=== PATIENT | male | born 1960 | race African-American/Black ===

== ENCOUNTER 2016-10-09 12:07 | Emergency (ER) | payer SELFPAY ==
[~2016-10-09] VITALS: Ht 172.7 cm; Wt 61.0 kg
[~2016-10-09 12:07] MED LIST: ACET-2178 PO; AMLO5TAB88 PO; CIME400T PO; FERR-43 PO; PHEN100C4 PO
[2016-10-09] MEDS ORDERED: DIAZEPAM 2 MG TABLET PO ONE (13:00)
[2016-10-09] MEDS ORDERED: KETOROLAC 60MG/2ML VIAL IM ONE (13:00)
[2016-10-09 13:59] LABS: CLARITY URINE CLEAR (CLEAR); COLOR URINE DARK YELLOW (YELLOW); GLUCOSE URINE NEGATIVE (NEGATIVE); KETONES URINE 1+ (NEGATIVE); LEUKOCYTE ESTERASE URINE NEGATIVE (NEGATIVE); NITRITE URINE NEGATIVE (NEGATIVE); OCCULT BLOOD URINE NEGATIVE (NEGATIVE); PH URINE 6.5 (4.5-8.0); PROTEIN URINE TRACE (NEGATIVE); SPECIFIC GRAVITY URINE 1.021 (1.005-1.030)
[2016-10-09 14:41] VITALS: BP 117/66
== END 2016-10-09 16:36 | disposition home or self-care (01) ==
LOC: ER 14:59
DX: S39.012A Strain of muscle, fascia and tendon of lower back, initial encounter (principal); G89.29 Other chronic pain; I10 Essential (primary) hypertension; D64.9 Anemia, unspecified; R56.9 Unspecified convulsions; F17.200 Nicotine dependence, unspecified, uncomplicated; Z79.899 Other long term (current) drug therapy; X58.XXXA Exposure to other specified factors, initial encounter; Y93.89 Activity, other specified; Y99.8 Other external cause status; Y92.89 Other specified places as the place of occurrence of the external cause
CPT/HCPCS: 72100; 81001; 96372; 99285; J1885; Z7610

== ENCOUNTER 2020-12-13 09:14 | Emergency (ER) | payer MEDICAID, MEDICARE, OTHER ==
[~2020-12-13] VITALS: Ht 172.7 cm; Wt 59.0 kg
[~2020-12-13 09:14] MED LIST changes: -ACET-2178 PO; +TOPUD PO
[2020-12-13 10:15] LABS: HEMATOCRIT. 22.2 % (42.0-52.0); MEAN CORPUSCULAR HEMOGLOBIN 24.6 pg (28.0-32.0); MEAN CORPUSCULAR VOLUME 78.3 fL (80.0-94.0); MEAN PLATELET VOLUME 6.2 fl (7.4-10.4); PLATELET 377 x1000/uL (130-400); RED BLOOD CELL COUNT 2.83 mill/uL (4.7-6.1); RED CELL DISTRIBUTION WIDTH 20.9 % (11.6-14.6)
[2020-12-13 10:21] LABS: CHLORIDE 107 mEq/L (98-107)
[2020-12-13 10:27] LABS: PROTHROMBIN TIME 10.5 sec (9.6-11.0)
[2020-12-13 10:31] LABS: TOTAL IRON BINDING CAPACITY 384 ug/dL (250-450)
[2020-12-13 10:44] LABS: FOLIC ACID (FOLATE) SERUM 12.6 ng/mL (>5.38)
[2020-12-13 11:10] VITALS: BP 148/80
[2020-12-13 11:23] LABS: PLATELET ESTIMATE NORMAL
== END 2020-12-13 11:15 | disposition home or self-care (01) ==
LOC: ER 09:14
DX: D64.9 Anemia, unspecified (principal); I10 Essential (primary) hypertension; G40.909 Epilepsy, unspecified, not intractable, without status epilepticus; Z98.890 Other specified postprocedural states
CPT/HCPCS: 36415; 80053; 82607; 82746; 83540; 83550; 85025; 85044; 86850; 86900; 99283

== ENCOUNTER 2020-12-14 11:47 | Emergency (ER) | payer OTHER ==
[~2020-12-14] VITALS: Ht 172.7 cm; Wt 59.0 kg
[2020-12-14 13:00] LABS: HEMATOCRIT. 22.7 % (42.0-52.0); HEMOGLOBIN. 7.2 g/dL (14.0-18.0); MEAN CORPUSCULAR HEMOGLOBIN 25.3 pg (28.0-32.0); MEAN CORPUSCULAR VOLUME 79.6 fL (80.0-94.0); MEAN PLATELET VOLUME 6.4 fl (7.4-10.4); PLATELET 373 x1000/uL (130-400); RED BLOOD CELL COUNT 2.85 mill/uL (4.7-6.1); RED CELL DISTRIBUTION WIDTH 20.6 % (11.6-14.6)
[2020-12-14 13:01] LABS: CHLORIDE 106 mEq/L (98-107)
[2020-12-14 13:08] LABS: PARTIAL THROMBOPLASTIN TIME 27.9 sec (23.4-31.0); PROTHROMBIN TIME 10.6 sec (9.6-11.0)
[2020-12-14 14:23] LABS: PLATELET ESTIMATE NORMAL
[2020-12-14 14:55] VITALS: BP 148/74
== END 2020-12-14 14:56 | disposition home or self-care (01) ==
LOC: ER 11:47
DX: D64.9 Anemia, unspecified (principal); I51.7 Cardiomegaly; I10 Essential (primary) hypertension; R56.9 Unspecified convulsions
CPT/HCPCS: 36415; 80048; 84484; 85025; 86850; 86900; 93005; 99284

== ENCOUNTER 2021-03-05 08:09 | Inpatient (IN) | payer OTHER ==
[~2021-03-05] VITALS: Ht 172.7 cm; Wt 58.1 kg
[2021-03-05] MEDS ORDERED: SODIUM CHLORIDE 0.9% 1,000 ML IV ONE (08:30)
[2021-03-05 08:49] LABS: CHLORIDE 102 mEq/L (98-107)
[2021-03-05 08:54] LABS: PARTIAL THROMBOPLASTIN TIME 24.3 sec (23.4-31.0); PROTHROMBIN TIME 11.2 sec (9.6-11.0)
[2021-03-05 08:59] LABS: HEMATOCRIT. 24.7 % (42.0-52.0); HEMOGLOBIN. 7.3 g/dL (14.0-18.0); MEAN CORPUSCULAR HEMOGLOBIN 21.7 pg (28.0-32.0); MEAN CORPUSCULAR VOLUME 73.5 fL (80.0-94.0); MEAN PLATELET VOLUME 6.8 fl (7.4-10.4); PLATELET 270 x1000/uL (130-400); RED BLOOD CELL COUNT 3.36 mill/uL (4.7-6.1); RED CELL DISTRIBUTION WIDTH 21.3 % (11.6-14.6)
[2021-03-05 09:42] LABS: NUCLEATED RED BLOOD CELLS 1 /100 WBC; PLATELET ESTIMATE NORMAL
[2021-03-05] MEDS ORDERED: ONDANSETRON HCL 4MG/2ML INJ IV PRN (17:15)
[2021-03-05] MEDS ORDERED: HYDRALAZINE 20MG/ML VIAL IV PRN (17:15)
[2021-03-05] MEDS ORDERED: HYDROCODONE/ACETAMINOPHEN 5/325MG TABLET PO PRN (17:15)
[2021-03-05] MEDS: DEXT 5%/0.9% NACL 1,000 ML IV SCH (17:23)
[2021-03-05] MEDS ORDERED: NALOXONE HCL 0.4MG/ML VIAL IV PRN (17:30)
[2021-03-05] MEDS: PHENYTOIN SODIUM EXTENDED 100MG CAPSULE PO SCH (17:46)
[2021-03-05] MEDS: PANTOPRAZOLE SODIUM 40 MG/VIAL IV SCH (17:46)
[2021-03-05 18:11] LABS: HEMATOCRIT 22.3 % (42.0-52.0); HEMOGLOBIN 6.6 g/dL (14.0-18.0)
[2021-03-06 04:08] LABS: BASOPHILS % 0.5 % (0.0-2.0); EOSINOPHILS % 2.3 % (0.0-5.0); HEMATOCRIT. 25.7 % (42.0-52.0); MEAN CORPUSCULAR HEMOGLOBIN 23.7 pg (28.0-32.0); MEAN CORPUSCULAR VOLUME 76.2 fL (80.0-94.0); MEAN PLATELET VOLUME 7.2 fl (7.4-10.4); NEUTROPHILS % 66.2 % (40.0-76.0); PLATELET 222 x1000/uL (130-400); RED BLOOD CELL COUNT 3.37 mill/uL (4.7-6.1); RED CELL DISTRIBUTION WIDTH 23.7 % (11.6-14.6)
[2021-03-06 04:16] LABS: CHLORIDE 103 mEq/L (98-107)
[2021-03-06 04:57] LABS: PLATELET ESTIMATE NORMAL
[2021-03-06] MEDS: PHENYTOIN SODIUM EXTENDED 100MG CAPSULE PO SCH ×2 (08:11→16:56)
[2021-03-06] MEDS: PANTOPRAZOLE SODIUM 40 MG/VIAL IV SCH (08:42)
[2021-03-06] MEDS: DEXT 5%/0.9% NACL 1,000 ML IV SCH (08:42)
[2021-03-06 09:32] VITALS: BP 141/80
[2021-03-06 10:00] VITALS: BP 141/80
[2021-03-06 12:00] VITALS: BP_SYST 136; BP_SYST 137; BP_SYST 160; BP_DIAS 64; BP_DIAS 74
[2021-03-06 13:34] LABS: HEMATOCRIT 33.1 % (42.0-52.0); HEMOGLOBIN 10.3 g/dL (14.0-18.0)
[2021-03-06 16:00] VITALS: BP 145/80
[2021-03-06 20:00] VITALS: BP 128/71
[2021-03-06 21:22] LABS: TOTAL IRON BINDING CAPACITY 376 ug/dL (250-450)
[2021-03-06 21:40] LABS: FOLIC ACID (FOLATE) SERUM 8.3 ng/mL (>5.38)
[2021-03-07] VITALS: BP_SYST 112; BP_SYST 119; BP_SYST 138; BP_DIAS 70; BP_DIAS 71; BP_DIAS 75
[2021-03-07 04:00] VITALS: BP 133/74
[2021-03-07 06:29] LABS: HEMATOCRIT. 31.6 % (42.0-52.0); MEAN CORPUSCULAR HEMOGLOBIN 24.6 pg (28.0-32.0); MEAN CORPUSCULAR VOLUME 77.8 fL (80.0-94.0); MEAN PLATELET VOLUME 7.4 fl (7.4-10.4); PLATELET 234 x1000/uL (130-400); RED BLOOD CELL COUNT 4.06 mill/uL (4.7-6.1); RED CELL DISTRIBUTION WIDTH 22.9 % (11.6-14.6)
[2021-03-07 06:32] LABS: CHLORIDE 102 mEq/L (98-107)
[2021-03-07] MEDS: DEXT 5%/0.9% NACL 1,000 ML IV SCH ×3 (07:03→20:24)
[2021-03-07 08:00] VITALS: BP 136/83
[2021-03-07] MEDS ORDERED: PANTOPRAZOLE SODIUM 40 MG/VIAL IV SCH (09:00)
[2021-03-07] MEDS: PHENYTOIN SODIUM EXTENDED 100MG CAPSULE PO SCH ×2 (09:12→16:25)
[2021-03-07] MEDS ORDERED: ASCORBIC ACID 500 MG TABLET PO SCH (10:00)
[2021-03-07] MEDS ORDERED: PROT40 MT (11:51)
[2021-03-07] MEDS ORDERED: FERR-71 MT (11:51)
[2021-03-07 12:00] VITALS: BP 152/77
[2021-03-07] MEDS ORDERED: FERROUS SULFATE 325MG TABLET PO SCH (12:40)
[2021-03-07] MEDS: IRON SUCROSE COMPLEX 100 MG/5 ML ML IV SCH (15:41)
[2021-03-07 16:00] VITALS: BP_SYST 138; BP_SYST 142; BP_SYST 146; BP_DIAS 78; BP_DIAS 82
[2021-03-07 20:00] VITALS: BP 143/81
[2021-03-07] MEDS: PANTOPRAZOLE SODIUM 40 MG/VIAL IV SCH (20:24)
[2021-03-07 20:26] LABS: PLATELET ESTIMATE NORMAL
[2021-03-08] VITALS: BP 115/54
[2021-03-08 04:00] VITALS: BP 135/67
[2021-03-08 07:07] LABS: BASOPHILS % 0.6 % (0.0-2.0); EOSINOPHILS % 1.7 % (0.0-5.0); HEMATOCRIT. 29.4 % (42.0-52.0); HEMOGLOBIN. 9.5 g/dL (14.0-18.0); LYMPHOCYTES % 13.4 % (20.0-50.0); MEAN CORPUSCULAR HEMOGLOBIN 24.9 pg (28.0-32.0); MEAN CORPUSCULAR VOLUME 77.4 fL (80.0-94.0); MONOCYTES % 13.2 % (2.0-8.0); NEUTROPHILS % 71.1 % (40.0-76.0); PLATELET 231 x1000/uL (130-400); RED CELL DISTRIBUTION WIDTH 22.9 % (11.6-14.6)
[2021-03-08 07:55] LABS: CHLORIDE 106 mEq/L (98-107)
[2021-03-08 08:00] VITALS: BP 151/82
[2021-03-08] MEDS: PANTOPRAZOLE SODIUM 40 MG/VIAL IV SCH (08:45)
[2021-03-08] MEDS: PHENYTOIN SODIUM EXTENDED 100MG CAPSULE PO SCH ×2 (09:00→17:00)
[2021-03-08] MEDS: DEXT 5%/0.9% NACL 1,000 ML IV SCH (11:05)
[2021-03-08] MEDS ORDERED: MIDAZOLAM HCL 5 MG/5 ML VIAL ONE (11:19)
[2021-03-08] MEDS ORDERED: LIDOCAINE HCL 1% 10 MG/ML 10ML VIAL ONE (11:20)
[2021-03-08] MEDS ORDERED: PROPOFOL 200MG/20ML VIAL IV ONE (11:21)
[2021-03-08 12:00] VITALS: BP 147/66
[2021-03-08] MEDS: IRON SUCROSE COMPLEX 100 MG/5 ML ML IV SCH (14:55)
[2021-03-08 15:27] VITALS: BP 141/90
[2021-03-08] MEDS ORDERED: BARIUM SULFATE(VOLUMEN) 450 ML ORAL.SUSP ONE ×2 (15:32→15:36)
[2021-03-08] MEDS ORDERED: IOHEXOL-350 100 ML BOTTLE ONE (18:36)
== END 2021-03-08 18:30 | disposition home or self-care (01) | DRG 378 ==
LOC: ER 08:09 → 8WST 15:13 → EDBEDREQ 03-06 06:00 → ENRESERV 03-06 08:06
PROVIDERS: ADMIT Internal Medicine; ATTEND Internal Medicine
PROC: 30233N1 Transfusion of Nonautologous Red Blood Cells into Peripheral Vein, Percutaneous Approach (ICD-10-PCS; principal; 2021-03-05)
PROC: 0DB68ZX Excision of Stomach, Via Natural or Artificial Opening Endoscopic, Diagnostic (ICD-10-PCS; 2021-03-08)
DX: K29.71 Gastritis, unspecified, with bleeding (principal); E87.1 Hypo-osmolality and hyponatremia; K31.811 Angiodysplasia of stomach and duodenum with bleeding; D50.9 Iron deficiency anemia, unspecified; R73.9 Hyperglycemia, unspecified; I10 Essential (primary) hypertension; G40.909 Epilepsy, unspecified, not intractable, without status epilepticus; K44.9 Diaphragmatic hernia without obstruction or gangrene; Z20.822 Contact with and (suspected) exposure to COVID-19; Z87.891 Personal history of nicotine dependence; Z79.899 Other long term (current) drug therapy
CPT/HCPCS: 36415; 71045; 74176; 74177; 80048; 80053; 82270; 82607; 82728; 82746; 83540; 83550; 83880; 84484; 85014; 85018; 85025; 86850; 86900; 86920; 87426; 88305; 93005; 99285; C9113; J0360; J2250; J2704; J3490; J7030; J7042; P9016; Q9967

== ENCOUNTER 2021-09-29 09:42 | Inpatient (IN) | payer OTHER ==
[~2021-09-29] VITALS: Ht 172.7 cm; Wt 60.8 kg
[~2021-09-29 09:42] MED LIST changes: +FERR-71 MT; +PROT40 MT
[2021-09-29 10:55] LABS: BASOPHILS % 1.1 % (0.0-2.0); EOSINOPHILS % 2.7 % (0.0-5.0); LYMPHOCYTES % 18.8 % (20.0-50.0); MEAN CORPUSCULAR HEMOGLOBIN 22.5 pg (28.0-32.0); MEAN CORPUSCULAR VOLUME 74.2 fL (80.0-94.0); MEAN PLATELET VOLUME 6.4 fl (7.4-10.4); MONOCYTES % 13.5 % (2.0-8.0); NEUTROPHILS % 63.9 % (40.0-76.0); PLATELET 354 x1000/uL (130-400); RED BLOOD CELL COUNT 2.66 mill/uL (4.7-6.1); RED CELL DISTRIBUTION WIDTH 21.9 % (11.6-14.6)
[2021-09-29 11:02] LABS: CHLORIDE 104 mEq/L (98-107)
[2021-09-29 11:04] LABS: HEMATOCRIT. 19.7 % (42.0-52.0)
[2021-09-29 11:51] LABS: CLARITY URINE CLEAR (CLEAR); COLOR URINE YELLOW (YELLOW); KETONES URINE NEGATIVE (NEGATIVE); LEUKOCYTE ESTERASE URINE NEGATIVE (NEGATIVE); NITRITE URINE NEGATIVE (NEGATIVE); OCCULT BLOOD URINE NEGATIVE (NEGATIVE); PROTEIN URINE NEGATIVE (NEGATIVE); SPECIFIC GRAVITY URINE 1.005 (1.005-1.030); UROBILINOGEN URINE 0.2 E.U./dL (0.2-1.0)
[2021-09-29] MEDS ORDERED: ONDANSETRON HCL 4MG/2ML INJ IV PRN (14:00)
[2021-09-29] MEDS: ACETAMINOPHEN 325MG TABLET PO PRN (16:23)
[2021-09-29] MEDS: PANTOPRAZOLE SODIUM 40 MG/VIAL IV SCH (16:23)
[2021-09-29 16:42] LABS: TOTAL IRON BINDING CAPACITY 442 ug/dL (250-450)
[2021-09-29 18:01] LABS: FOLIC ACID (FOLATE) SERUM 11.4 ng/mL (>5.38)
[2021-09-30] VITALS (8 sets, daily range): BP systolic 135–151; BP diastolic 67–92
[2021-09-30 04:58] LABS: BASOPHILS % 0.6 % (0.0-2.0); LYMPHOCYTES % 17.1 % (20.0-50.0); MEAN CORPUSCULAR HEMOGLOBIN 22.3 pg (28.0-32.0); MEAN CORPUSCULAR VOLUME 79.7 fL (80.0-94.0); MEAN PLATELET VOLUME 6.5 fl (7.4-10.4); MONOCYTES % 13.1 % (2.0-8.0); NEUTROPHILS % 66.2 % (40.0-76.0); PLATELET 340 x1000/uL (130-400); RED BLOOD CELL COUNT 2.46 mill/uL (4.7-6.1); RED CELL DISTRIBUTION WIDTH 22.6 % (11.6-14.6)
[2021-09-30 05:07] LABS: HEMOGLOBIN. 5.5 g/dL (14.0-18.0)
[2021-09-30 05:08] LABS: HEMATOCRIT. 19.6 % (42.0-52.0)
[2021-09-30 05:14] LABS: CHLORIDE 106 mEq/L (98-107)
[2021-09-30] MEDS ORDERED: OMEPRAZOLE 20MG CAPSULE EXTENDED RELEASE PO SCH (07:50)
[2021-09-30] MEDS: ACETAMINOPHEN 325MG TABLET PO PRN (09:03)
[2021-09-30] MEDS: PANTOPRAZOLE SODIUM 40 MG/VIAL IV SCH (09:13)
[2021-09-30] MEDS: IRON SUCROSE COMPLEX 100 MG/5 ML ML IV SCH (13:45)
[2021-09-30] MEDS: PHENYTOIN SODIUM EXTENDED 100MG CAPSULE PO SCH (20:44)
[2021-09-30 21:07] LABS: PLATELET ESTIMATE NORMAL
[2021-10-01] VITALS (7 sets, daily range): BP systolic 137–156; BP diastolic 67–81
[2021-10-01] MEDS: ACETAMINOPHEN 325MG TABLET PO PRN (00:43)
[2021-10-01 03:25] LABS: BASOPHILS % 0.5 % (0.0-2.0); EOSINOPHILS % 3.7 % (0.0-5.0); HEMATOCRIT. 26.9 % (42.0-52.0); HEMOGLOBIN. 8.4 g/dL (14.0-18.0); LYMPHOCYTES % 8.7 % (20.0-50.0); MEAN CORPUSCULAR HEMOGLOBIN 24.3 pg (28.0-32.0); MEAN CORPUSCULAR VOLUME 77.8 fL (80.0-94.0); MEAN PLATELET VOLUME 6.7 fl (7.4-10.4); MONOCYTES % 10.7 % (2.0-8.0); NEUTROPHILS % 76.4 % (40.0-76.0); PLATELET 334 x1000/uL (130-400); RED BLOOD CELL COUNT 3.45 mill/uL (4.7-6.1); RED CELL DISTRIBUTION WIDTH 21.8 % (11.6-14.6)
[2021-10-01 03:33] LABS: CHLORIDE 103 mEq/L (98-107)
[2021-10-01] MEDS: PANTOPRAZOLE SODIUM 40 MG/VIAL IV SCH (08:47)
[2021-10-01] MEDS: PHENYTOIN SODIUM EXTENDED 100MG CAPSULE PO SCH ×2 (08:47→16:38)
[2021-10-01] MEDS ORDERED: AMLODIPINE 5MG TABLET PO SCH (09:00)
[2021-10-01] MEDS: IRON SUCROSE COMPLEX 100 MG/5 ML ML IV SCH (12:43)
[2021-10-01] MEDS ORDERED: FERR-71 MT (16:18)
[2021-10-01] MEDS ORDERED: PROT40 MT (16:18)
[2021-10-01 17:04] LABS: HEMATOCRIT 29.5 % (42.0-52.0)
== END 2021-10-01 15:30 | disposition home or self-care (01) | DRG 811 ==
LOC: EDBD 10:24 → ER 10:24 → MICUSO 13:47 → EDBEDREQ 13:50 → 7WST 09-30 07:27
PROVIDERS: ADMIT Internal Medicine; ATTEND Internal Medicine
PROC: 30233N1 Transfusion of Nonautologous Red Blood Cells into Peripheral Vein, Percutaneous Approach (ICD-10-PCS; principal; 2021-09-30)
DX: D50.9 Iron deficiency anemia, unspecified (principal); K31.811 Angiodysplasia of stomach and duodenum with bleeding; G40.909 Epilepsy, unspecified, not intractable, without status epilepticus; I10 Essential (primary) hypertension; K57.90 Diverticulosis of intestine, part unspecified, without perforation or abscess without bleeding; K44.9 Diaphragmatic hernia without obstruction or gangrene; F10.10 Alcohol abuse, uncomplicated; Y90.9 Presence of alcohol in blood, level not specified; F17.210 Nicotine dependence, cigarettes, uncomplicated; Z79.899 Other long term (current) drug therapy; Z20.822 Contact with and (suspected) exposure to COVID-19; K29.70 Gastritis, unspecified, without bleeding; Z87.81 Personal history of (healed) traumatic fracture
CPT/HCPCS: 36415; 71045; 74176; 80048; 80053; 81003; 82607; 82728; 82746; 83540; 83550; 84484; 85014; 85018; 85025; 85044; 86850; 86900; 86920; 87426; 93005; 99291; C9113; C9803; J2405; P9016

== ENCOUNTER 2025-01-24 06:51 | Emergency (ER) | payer BC ==
[~2025-01-24] VITALS: Ht 170.2 cm; Wt 57.0 kg
[~2025-01-24 06:51] MED LIST changes: +ASCO-339 MT; -CIME400T PO; +DOCU-138 MT; -FERR-43 PO; +FERR325T23 MT; +SUCR1TAB PO; +SUCR1TAB30 MT
[2025-01-24 06:57] VITALS: O2SAT 100
[2025-01-24] MEDS ORDERED: T3 PO (07:11)
[2025-01-24] MEDS ORDERED: VALA100044 PO (07:11)
[2025-01-24 07:28] VITALS: BP 118/73; PULSE 93; RESP 16; TEMP 37.1; O2SAT 100
== END 2025-01-24 07:30 | disposition home or self-care (01) ==
LOC: ER 06:51
DX: B02.9 Zoster without complications (principal); I10 Essential (primary) hypertension; F10.90 Alcohol use, unspecified, uncomplicated; Z79.624 Long term (current) use of inhibitors of nucleotide synthesis; Z79.899 Other long term (current) drug therapy; Y90.9 Presence of alcohol in blood, level not specified
CPT/HCPCS: 99283